=== PATIENT | male | born 1985 | race American Indian/Alaskan Native ===

== ENCOUNTER 2017-11-17 14:08 | Emergency (ER) | payer OTHER ==
[2017-11-17 14:18] VITALS: BP 138/77
[2017-11-17] MEDS ORDERED: TORADOL IM ONE (16:59)
[2017-11-17] MEDS ORDERED: ZOFRAN IM ONE (16:59)
[2017-11-17] MEDS ORDERED: MORPHINE IM ONE (16:59)
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
[2017-11-17] MEDS ORDERED: MOTRIN PO ONE (17:09)
[2017-11-17] MEDS ORDERED: FLEXERIL PO ONE (17:09)
[2017-11-17] MEDS ORDERED: NORCO 5/325 PO ONE (17:09)
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
== END 2017-11-17 18:21 | disposition home or self-care (01) ==
LOC: ED 14:08
DX: S16.1XXA Strain of muscle, fascia and tendon at neck level, initial encounter (principal); S39.012A Strain of muscle, fascia and tendon of lower back, initial encounter; R51 Headache; V89.2XXA Person injured in unspecified motor-vehicle accident, traffic, initial encounter; Y93.89 Activity, other specified; Y99.8 Other external cause status; Y92.410 Unspecified street and highway as the place of occurrence of the external cause
CPT/HCPCS: 70450; 72072; 72100; 72125; 99284; J1885; J2270; J2405

== ENCOUNTER 2018-01-01 23:47 | Emergency (ER) | payer SELFPAY ==
[2018-01-02 00:21] VITALS: BP 125/74
[2018-01-02] MEDS ORDERED: NORCO 7.5/325 PO ONE (00:36)
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
== END 2018-01-02 01:46 | disposition home or self-care (01) ==
LOC: ED 23:47
DX: S01.511A Laceration without foreign body of lip, initial encounter (principal); W22.8XXA Striking against or struck by other objects, initial encounter; Y93.89 Activity, other specified; Y92.89 Other specified places as the place of occurrence of the external cause; Y99.8 Other external cause status

== ENCOUNTER 2020-02-01 18:02 | Emergency (ER) | payer SELFPAY ==
--- NOTE | 2020-02-01 20:37 | Emergency Department Report ---
ED General Adult HPI - General Chief complaint: Earache Stated complaint: LEFT EAR PAIN Source: patient Mode of arrival: Ambulatory Limitations: No Limitations - History of Present Illness Initial comments: Patient is a 34-year-old -[place]i male with no past medical history who presents to the ED with complaint of acute onset persistent cerumen impaction in the left ear with decreased hearing acuity for the last 1 week, worse in the last 2 days. Patient states that the ear wax buildup so much in his ears and he tried to remove it with a Q-tip with no success. Patient denies hearing loss, dizziness, syncope, headache, fever, chills, cough, sore throat, nasal and sinus congestion, abdominal pain, chest pain or shortness of breath. MD Complaint: cerumen impaction on left ear -: Sudden, week(s) (1) Location: face (left ear) Radiation: non-radiation Severity scale (0 -10): 5 Quality: dull, constant Consistency: constant Improves with: none Worsens with: none Associated Symptoms: denies other symptoms, other (decreased hearing in left ear due to cerumen impaction). denies: confusion, chest pain, cough, diaphoresis, fever/chills, headaches, loss of appetite, malaise, nausea/vomiting, rash, seizure, shortness of breath, syncope, weakness Treatments Prior to Arrival: none - Related Data Previous Rx's Medication Instructions Recorded Last Taken Type Acetaminophen/Codeine [Tylenol #3] 1 tab PO Q6H PRN #15 tab 08/21/15 Unknown Rx Cipro/Dexameth 0.3/0.1% [Ciprodex 4 drops OT BID #1 bottle 08/21/15 Unknown Rx OT[facility]] Sulfamethoxazole/Trimethoprim 1 each PO BID #14 tablet 08/21/15 Unknown Rx [Bactrim DS TAB] Cyclobenzaprine [Flexeril] 10 mg PO TID PRN #14 tablet 11/17/17 Unknown Rx HYDROcodone/APAP 5-325 [[place] 1 - 2 each PO Q6HR PRN #14 tablet 11/17/17 Unknown Rx 5/325] Ibuprofen [Motrin 800 MG tab] 800 mg PO Q8HR PRN #20 tablet 11/17/17 Unknown Rx Carbamide Peroxide [Ear Wax 5 drop OT Q8H #15 ml 02/01/20 Unknown Rx Removal] Allergies Allergy/AdvReac Type Severity Reaction Status Date / Time No Known Allergies Allergy Unverified 08/21/15 08:28 ED Review of Systems ROS: Stated complaint: LEFT EAR PAIN Other details as noted in HPI Constitutional: denies: chills, fever Eyes: denies: eye pain, eye discharge, vision change ENT: other (Cerumen impaction in left ear). denies: ear pain, throat pain Respiratory: denies: cough, shortness of breath, wheezing Cardiovascular: denies: chest pain, palpitations Endocrine: no symptoms reported Gastrointestinal: denies: abdominal pain, nausea, diarrhea Genitourinary: denies: urgency, dysuria Musculoskeletal: denies: back pain, joint swelling, arthralgia Skin: denies: rash, lesions Neurological: denies: headache, weakness, paresthesias Psychiatric: denies: anxiety, depression Hematological/Lymphatic: denies: easy bleeding, easy bruising ED Past Medical Hx - Past Medical History Previous Medical History?: No - Surgical History Past Surgical History?: No - Social History Smoking Status: Never Smoker Substance Use Type: None - Medications Home Medications: Home Medications Medication Instructions Recorded Confirmed Last Taken Type Acetaminophen/Codeine [Tylenol #3] 1 tab PO Q6H PRN #15 tab 08/21/15 Unknown Rx Cipro/Dexameth 0.3/0.1% [Ciprodex 4 drops OT BID #1 bottle 08/21/15 Unknown Rx OTIC] Sulfamethoxazole/Trimethoprim 1 each PO BID #14 tablet 08/21/15 Unknown Rx [Bactrim DS TAB] Cyclobenzaprine [Flexeril] 10 mg PO TID PRN #14 tablet 11/17/17 Unknown Rx HYDROcodone/APAP 5-325 [[place] 1 - 2 each PO Q6HR PRN #14 tablet 11/17/17 Unknown Rx 5/325] Ibuprofen [Motrin 800 MG tab] 800 mg PO Q8HR PRN #20 tablet 11/17/17 Unknown Rx Carbamide Peroxide [Ear Wax 5 drop OT Q8H #15 ml 02/01/20 Unknown Rx Removal] ED Physical Exam - General Limitations: No Limitations General appearance: alert, in no apparent distress - Head Head exam: Present: atraumatic, normocephalic, normal inspection - Eye Eye exam: Present: normal appearance, PERRL, EOMI Pupils: Present: normal accommodation - ENT ENT exam: Present: normal exam, normal orophraynx, mucous membranes moist, other (Bilateral cerumen impaction) - Neck Neck exam: Present: normal inspection, full ROM - Respiratory Respiratory exam: Present: normal lung sounds bilaterally. Absent: respiratory distress, wheezes, rales, rhonchi, chest wall tenderness, accessory muscle use, decreased breath sounds, prolonged expiratory - Cardiovascular Cardiovascular Exam: Present: regular rate, normal rhythm, normal heart sounds. Absent: systolic murmur, diastolic murmur, rubs, gallop - GI/Abdominal GI/Abdominal exam: Present: soft, normal bowel sounds. Absent: tenderness, guarding, rebound, hyperactive bowel sounds, hypoactive bowel sounds, organomegaly - Extremities Exam Extremities exam: Present: normal inspection, full ROM, normal capillary refill - Back Exam Back exam: Present: normal inspection, full ROM. Absent: tenderness, CVA tenderness (R), CVA tenderness (L), muscle spasm, paraspinal tenderness, vertebral tenderness - Neurological Exam Neurological exam: Present: alert, oriented X3, CN II-XII intact, normal gait, reflexes normal - Psychiatric Psychiatric exam: Present: normal affect, normal mood - Skin Skin exam: Present: warm, dry, intact, normal color. Absent: rash ED Course Vital Signs 02/01/20 02/01/20 18:12 20:59 Temperature 98.1 F 98.1 F Pulse Rate 69 70 Respiratory 18 18 Rate Blood Pressure 136/85 Blood Pressure 132/86 [Left] O2 Sat by Pulse 100 100 Oximetry ED Medical Decision Making - Medical Decision Making This is a 34-year-old -[place]i male with no past medical history who presents to the ED with complaint of acute onset persistent cerumen impaction in the left ear with decreased hearing acuity for the last 1 week, worse in the last 2 days. Patient states that the ear wax buildup so much in his ears and he tried to remove it with a Q-tip with no success. In the ED, patient is alert and oriented x3 and is not in distress. Physical exam reveals bilateral cerumen impaction with no sign of infection. Patient was discharged home on prescription for Debrox solution for cerumen removal. Patient was advised to follow-up with his primary care physician in 7 to 10 days for reevaluation or return to the ED immediately if symptoms get worse. - Differential Diagnosis cerumen impaction; otitis media; otitis externa Critical care attestation.: If time is entered above; I have spent that time in minutes in the direct care of this critically ill patient, excluding procedure time. ED Disposition Clinical Impression: Impacted cerumen of both ears Disposition: TO HOME OR SELFCARE Is pt being admited?: No Does the pt Need Aspirin: No Condition: Stable Instructions: Cerumen Impaction (ED) Additional Instructions: Apply the drops to the affected ears as directed. Follow up with your Primary Care Physician in 7-10 days for reevaluation. Return to the ED immediately if symptoms get worse. Return to the ED immediately if symptoms get worse. Prescriptions: Carbamide Peroxide [Ear Wax Removal] 5 drop OT Q8H #15 ml Referrals: PRIMARY CARE, [Primary Care Provider] - 3-5 Days Time of Disposition: 20:42 Print Language: SOUTH [place]UD[place]
[2020-02-01 21:19] VITALS: BP 132/86
== END 2020-02-01 20:58 | disposition home or self-care (01) ==
LOC: ED 18:02
DX: H61.22 Impacted cerumen, left ear (principal); Z79.899 Other long term (current) drug therapy
CPT/HCPCS: 99282

== ENCOUNTER 2021-05-07 00:50 | Emergency (ER) | payer SELFPAY ==
[2021-05-07 02:00] VITALS: BP 126/77
--- NOTE | 2021-05-07 06:21 | Emergency Department Report ---
ED ENT HPI - General Chief complaint: Earache Stated complaint: R EAR STOPPED UP Time Seen by Provider: 05/07/21 06:06 Source: patient Mode of arrival: Ambulatory Limitations: No Limitations - History of Present Illness Initial comments: 35-year-old [place] male presents emerge department complaining of right ear pressure, tinnitus of unknown etiology reports no fever, chills, sweats no chest pain palpitation no nausea vomiting no trauma. No ear discharge instructions/ -: Gradual Location: R ear Severity: mild Quality: dull Consistency: constant - Related Data Previous Rx's Medication Instructions Recorded Last Taken Type Acetaminophen/Codeine [Tylenol #3] 1 tab PO Q6H PRN #15 tab 08/21/15 Unknown Rx Cipro/Dexameth 0.3/0.1% [Ciprodex 4 drops OT BID #1 bottle 08/21/15 Unknown Rx OTIC] Sulfamethoxazole/Trimethoprim 1 each PO BID #14 tablet 08/21/15 Unknown Rx [Bactrim DS TAB] Cyclobenzaprine [Flexeril] 10 mg PO TID PRN #14 tablet 11/17/17 Unknown Rx HYDROcodone/APAP 5-325 [[place] 1 - 2 each PO Q6HR PRN #14 tablet 11/17/17 Unknown Rx 5/325] Ibuprofen [Motrin 800 MG tab] 800 mg PO Q8HR PRN #20 tablet 11/17/17 Unknown Rx Carbamide Peroxide [Ear Wax 5 drop OT Q8H #15 ml 02/01/20 Unknown Rx Removal] hydrOXYzine HCL [Atarax] 25 mg PO Q6HR PRN #20 tablet 05/07/21 Unknown Rx predniSONE [Deltasone] 20 mg PO QDAY #7 tab 05/07/21 Unknown Rx Allergies Allergy/AdvReac Type Severity Reaction Status Date / Time No Known Allergies Allergy Unverified 08/21/15 08:28 ED Dental HPI - General Chief complaint: Earache Stated complaint: R EAR STOPPED UP Time Seen by Provider: 05/07/21 06:06 Source: patient Mode of arrival: Ambulatory Limitations: No Limitations - Related Data Previous Rx's Medication Instructions Recorded Last Taken Type Acetaminophen/Codeine [Tylenol #3] 1 tab PO Q6H PRN #15 tab 08/21/15 Unknown Rx Cipro/Dexameth 0.3/0.1% [Ciprodex 4 drops OT BID #1 bottle 08/21/15 Unknown Rx OTIC] Sulfamethoxazole/Trimethoprim 1 each PO BID #14 tablet 08/21/15 Unknown Rx [Bactrim DS TAB] Cyclobenzaprine [Flexeril] 10 mg PO TID PRN #14 tablet 11/17/17 Unknown Rx HYDROcodone/APAP 5-325 [[place] 1 - 2 each PO Q6HR PRN #14 tablet 11/17/17 Unknown Rx 5/325] Ibuprofen [Motrin 800 MG tab] 800 mg PO Q8HR PRN #20 tablet 11/17/17 Unknown Rx Carbamide Peroxide [Ear Wax 5 drop OT Q8H #15 ml 02/01/20 Unknown Rx Removal] hydrOXYzine HCL [Atarax] 25 mg PO Q6HR PRN #20 tablet 05/07/21 Unknown Rx predniSONE [Deltasone] 20 mg PO QDAY #7 tab 05/07/21 Unknown Rx Allergies Allergy/AdvReac Type Severity Reaction Status Date / Time No Known Allergies Allergy Unverified 08/21/15 08:28 ED Review of Systems ROS: Stated complaint: R EAR STOPPED UP Other details as noted in HPI Comment: All other systems reviewed and negative ED Past Medical Hx - Past Medical History Previous Medical History?: No - Surgical History Past Surgical History?: No - Social History Smoking Status: Never Smoker Substance Use Type: None - Medications Home Medications: Home Medications Medication Instructions Recorded Confirmed Last Taken Type Acetaminophen/Codeine [Tylenol #3] 1 tab PO Q6H PRN #15 tab 08/21/15 Unknown Rx Cipro/Dexameth 0.3/0.1% [Ciprodex 4 drops OT BID #1 bottle 08/21/15 Unknown Rx OTIC] Sulfamethoxazole/Trimethoprim 1 each PO BID #14 tablet 08/21/15 Unknown Rx [Bactrim DS TAB] Cyclobenzaprine [Flexeril] 10 mg PO TID PRN #14 tablet 11/17/17 Unknown Rx HYDROcodone/APAP 5-325 [[place] 1 - 2 each PO Q6HR PRN #14 tablet 11/17/17 Unknown Rx 5/325] Ibuprofen [Motrin 800 MG tab] 800 mg PO Q8HR PRN #20 tablet 11/17/17 Unknown Rx Carbamide Peroxide [Ear Wax 5 drop OT Q8H #15 ml 05/07/20 Unknown Rx Removal] hydrOXYzine HCL [Atarax] 25 mg PO Q6HR PRN #20 tablet 05/07/21 Unknown Rx predniSONE [Deltasone] 20 mg PO QDAY #7 tab 05/07/21 Unknown Rx ED Physical Exam - General Limitations: No Limitations General appearance: alert, in no apparent distress - Head Head exam: Present: atraumatic, normocephalic - Eye Eye exam: Present: normal appearance - ENT ENT exam: Present: mucous membranes moist, other (Effusion to the right tympanic condominium property manager tympanic membrane. No wax depression. No nasal congestion) - Neck Neck exam: Present: normal inspection - Respiratory Respiratory exam: Present: normal lung sounds bilaterally. Absent: respiratory distress - Cardiovascular Cardiovascular Exam: Present: regular rate, normal rhythm. Absent: systolic murmur, diastolic murmur, rubs, gallop - GI/Abdominal GI/Abdominal exam: Present: soft, normal bowel sounds - Rectal Rectal exam: Present: deferred - Extremities Exam Extremities exam: Present: normal inspection - Back Exam Back exam: Present: normal inspection - Neurological Exam Neurological exam: Present: alert, oriented X3 - Psychiatric Psychiatric exam: Present: normal affect, normal mood - Skin Skin exam: Present: warm, dry, intact, normal color. Absent: rash ED Course Vital Signs 05/07/21 01:57 Temperature 98.2 F Pulse Rate 79 Respiratory 18 Rate Blood Pressure 126/77 O2 Sat by Pulse 95 Oximetry Critical care attestation.: If time is entered above; I have spent that time in minutes in the direct care of this critically ill patient, excluding procedure time. ED Disposition Clinical Impression: Acute effusion of right ear Disposition: DC-01 TO HOME OR SELFCARE Is pt being admited?: No Does the pt Need Aspirin: No Condition: Stable Instructions: Ear Drops, Adult, Otitis Media, Adult Prescriptions: hydrOXYzine HCL [Atarax] 25 mg PO Q6HR PRN #20 tablet PRN Reason: Itching predniSONE [Deltasone] 20 mg PO QDAY #7 tab Referrals: PRIMARY CARE, [Primary Care Provider] - 3-5 Days [facility] [Provider Group] - 3-5 Days
== END 2021-05-07 06:40 | disposition home or self-care (01) ==
LOC: ED 00:50
DX: H65.191 Other acute nonsuppurative otitis media, right ear (principal); Z79.899 Other long term (current) drug therapy
CPT/HCPCS: 99282